=== PATIENT | male | born 1985 | race African-American/Black ===

== ENCOUNTER 2018-06-01 12:58 | Emergency (ER) | payer SELFPAY ==
[~2018-06-01] VITALS: Ht 180.3 cm; Wt 80.0 kg
[~2018-06-01 12:58] MED LIST: ANTIVERT PO; AUGMENTIN875TAB PO; BACTRIM DS1 TAB PO; CEFTIN500 MG PO; FLONASE NASAL50 MCG; HYDROCODONE/ACE1 TAB PO; LISINOPRIL10 MG PO; LORTAB 10-325 M1 TAB PO; LORTAB 5-325 MG1 TAB PO; LORTAB 5/3255 MG PO; NAPROSYN500 MG PO; NO HOME MEDS; TESSALON PER100 MG PO; ZITHROMAX250 MG PO
[2018-06-01 13:41] VITALS: BP 135/90
[2018-06-01] MEDS ORDERED: ONDANSETRON4 MG PO (19:24)
== END 2018-06-01 13:42 | disposition left against medical advice (07) | DRG 392 ==
LOC: ED 12:58
DX: R10.84 Generalized abdominal pain (principal); F17.210 Nicotine dependence, cigarettes, uncomplicated; F12.90 Cannabis use, unspecified, uncomplicated; Z91.19 Patient's noncompliance with other medical treatment and regimen

== ENCOUNTER 2018-06-01 15:59 | Emergency (ER) | payer SELFPAY ==
[~2018-06-01] VITALS: Ht 180.3 cm; Wt 85.0 kg
[2018-06-01 16:52] LABS: HEMATOCRIT 46.9 % (39.0-50.0); IMMATURE GRANULOCYTES 0.4 % (0.0-5.0); MEAN CELL VOLUME 86.2 fL CALC (80.0-100.0); MEAN CORPUSCULAR HGB 30.5 pG CALC (26.0-32.0); MEAN CORPUSCULAR HGB CONC 35.4 g/L CALC (32.0-36.0); NEUT# 5.88 thou/uL (1.82-7.42); RED BLOOD COUNT 5.44 mill/uL (4.70-6.10); RED CELL DISTRI WIDTH 12.2 % (11.5-15.5)
[2018-06-01 16:53] LABS: HEMOGLOBIN 16.6 g/dl (14.0-18.0)
[2018-06-01 17:15] LABS: ALBUMIN 5.2 g/dL (3.2-5.0); ANION GAP 19 (6-22 (CALC)); BILIRUBIN, TOTAL 0.9 mg/dL (0.0-1.4); BUN 12 mg/dL (9-20); BUN/CREATININE RATIO 10 (12-20 (CALC)); CARBON DIOXIDE 22 mmol/l (22-30); CHLORIDE 106 mmol/l (95-108); CREATININE 1.2 mg/dL (0.7-1.3); GFR > 60 ML/MIN (>=60 (CALC)); GFR FOR AFR.AMER. > 60 ML/MIN (>=60 (CALC)); LIPASE 128 u/l (23-300); POTASSIUM 4.2 mmol/l (3.5-5.1); SGOT/AST 26 u/l (17-59); SGPT/ALT 45 u/l (21-72); SODIUM 142 mmol/l (137-146)
[2018-06-01 17:18] LABS: ALKALINE PHOSPHATASE 92 u/l (38-126)
[2018-06-01 17:51] LABS: URINE BILIRUBIN - DIPSTICK NEGATIVE (NEGATIVE); URINE BLOOD DIPSTICK NEGATIVE (NEGATIVE); URINE COLOR YELLOW; URINE GLUCOSE - DIPSTICK NEGATIVE (NEGATIVE); URINE KETONE NEGATIVE (NEGATIVE); URINE LEUK ESTERASE NEGATIVE (NEGATIVE); URINE NITRITE - DIPSTICK NEGATIVE (Negative); URINE PH 8.5 (4.5-8.0); URINE PROTEIN - DIPSTICK NEGATIVE (NEG-TRACE); URINE UROBILINOGEN - DIPSTICK 0.2 E.U./dL (0.2)
[2018-06-01 17:52] LABS: URINE CLARITY CLEAR
[2018-06-01] MEDS ORDERED: ONDANSETRON4 MG PO (19:24)
[2018-06-01 19:30] VITALS: BP 121/69
== END 2018-06-01 19:36 | disposition home or self-care (01) | DRG 392 ==
LOC: ED 15:59
PROVIDERS: Family Medicine
DX: R10.31 Right lower quadrant pain (principal); D35.02 Benign neoplasm of left adrenal gland; F17.210 Nicotine dependence, cigarettes, uncomplicated
CPT/HCPCS: Q9967

== ENCOUNTER 2018-08-21 13:03 | Emergency (ER) | payer SELFPAY ==
[~2018-08-21] VITALS: Ht 180.3 cm; Wt 104.0 kg
[~2018-08-21 13:03] MED LIST changes: +ONDANSETRON4 MG PO
[2018-08-21 13:58] LABS: HEMATOCRIT 41.7 % (39.0-50.0); HEMOGLOBIN 14.6 g/dl (14.0-18.0); IMMATURE GRANULOCYTES 0.6 % (0.0-5.0); MEAN CELL VOLUME 88.9 fL CALC (80.0-100.0); MEAN CORPUSCULAR HGB 31.1 pG CALC (26.0-32.0); NEUT# 5.56 thou/uL (1.82-7.42); RED BLOOD COUNT 4.69 mill/uL (4.70-6.10); RED CELL DISTRI WIDTH 12.9 % (11.5-15.5)
[2018-08-21 14:04] LABS: ALBUMIN 4.6 g/dL (3.2-5.0); ALKALINE PHOSPHATASE 57 u/l (38-126); ANION GAP 16 (6-22 (CALC)); BILIRUBIN, TOTAL 0.8 mg/dL (0.0-1.4); BUN 12 mg/dL (9-20); BUN/CREATININE RATIO 10 (12-20 (CALC)); CARBON DIOXIDE 23 mmol/l (22-30); CHLORIDE 106 mmol/l (95-108); CREATININE 1.2 mg/dL (0.7-1.3); GFR > 60 ML/MIN (>=60 (CALC)); GFR FOR AFR.AMER. > 60 ML/MIN (>=60 (CALC)); LIPASE 226 u/l (23-300); POTASSIUM 3.7 mmol/l (3.5-5.1); SGOT/AST 20 u/l (17-59); SODIUM 141 mmol/l (137-146); TOTAL PROTEIN 7.7 g/dL (6.3-8.2)
[2018-08-21 15:16] LABS: URINE BILIRUBIN - DIPSTICK NEGATIVE (NEGATIVE); URINE BLOOD DIPSTICK NEGATIVE (NEGATIVE); URINE COLOR YELLOW; URINE GLUCOSE - DIPSTICK NEGATIVE (NEGATIVE); URINE KETONE 40 mg/dL (NEGATIVE); URINE LEUK ESTERASE NEGATIVE (NEGATIVE); URINE NITRITE - DIPSTICK NEGATIVE (Negative); URINE PROTEIN - DIPSTICK NEGATIVE (NEG-TRACE); URINE UROBILINOGEN - DIPSTICK 0.2 E.U./dL (0.2)
[2018-08-21 15:30] VITALS: BP 177/89
[2018-08-21 15:52] LABS: URINE CLARITY CLEAR
== END 2018-08-21 15:35 | disposition home or self-care (01) | DRG 392 ==
LOC: ED 13:03
PROVIDERS: Family Medicine
DX: R10.31 Right lower quadrant pain (principal); R10.32 Left lower quadrant pain
CPT/HCPCS: Q9967